=== PATIENT | male | born 1970 | race Caucasian/White ===

== ENCOUNTER → 2020-02-25 10:46 | Outpatient (CLI) | payer OTHER, SELFPAY ==
[2020-02-25 12:14] LABS: Anion Gap 15.7 mEq/L (5-15); Blood Urea Nitrogen 8 mg/dl (9-20); Carbon Dioxide 31 mmol/L (22.0-30.0); Chloride 101 mmol/L (98-107); Chol/HDL Ratio 2.7 (1-3.5); Cholesterol 161 mg/dl (140-200); Estimated Glomerular Filt Rate 143 ml/min (>60); GFR (African American) 173 ML/MIN (>60); Glucose 106 mg/dl (74-100); HDL Cholesterol 60 mg/dl (40-60); Potassium 4.7 mmoL/L (3.5-5.1); Sodium 143 mmol/L (136-145); Triglycerides 65 mg/dl (30-150); VLDL Cholesterol 13 mg/dL (0-40)
[2020-02-25 12:25] LABS: Direct LDL Cholesterol 86.27 mg/dL (100-129)
[2020-02-25 12:26] LABS: Creatinine,Urine Random 113 mg/dL (Not Estab.)
[2020-02-25 12:44] LABS: Thyroid Stimulating Hormone 2.13 uIU/mL (0.465-4.68)
[2020-02-25 12:45] LABS: Hemoglobin A1C 7.2 % (4.0-6.0)
[2020-02-25 12:51] LABS: Microalbumin < 6.000 mg/L (0-16.7)
== END ==
PROVIDERS: Visit Provider Internal Medicine Endocrinology, Diabetes & Metabolism
DX: E10.9 Type 1 diabetes mellitus without complications (principal)
CPT/HCPCS: 36415; 80048; 80061; 82043; 82570; 83036; 84443

== ENCOUNTER 2020-05-29 14:57 | Emergency (ER) | payer OTHER, SELFPAY ==
[2020-05-29 15:15] VITALS: BP 141/83; PULSE 74; RESP 20; TEMP 36.8; O2SAT 100; BMI 28.9
[2020-05-29 15:36] VITALS: BP 141/83; PULSE 74; RESP 20; TEMP 36.8; O2SAT 100
== END 2020-05-29 15:38 | disposition home or self-care (01) ==
PROVIDERS: Emergency Provider Nurse Practitioner; PCP Family Medicine
DX: Z23 Encounter for immunization (principal)
CPT/HCPCS: 90686; G0008

== ENCOUNTER → 2022-05-09 07:24 | Outpatient (CLI) | payer OTHER, SELFPAY ==
[2022-05-09 09:07] LABS: Chloride 101 mmol/L (98-107); Potassium 4.5 mmoL/L (3.5-5.1); Sodium 142 mmol/L (136-145)
[2022-05-09 09:09] LABS: Blood Urea Nitrogen 11 mg/dl (9-20); Estimated Glomerular Filt Rate 119 ml/min (>60); GFR (African American) 144 ML/MIN (>60)
[2022-05-09 09:10] LABS: Alanine Aminotransferase 33 U/L (12-78); Albumin Level 4.4 g/dl (3.5-5.0); Albumin/Globulin Ratio 1.6 (1.1-1.8); Alkaline Phosphatase 128 U/L (38-126); Anion Gap 12.5 mEq/L (5-15); Aspartate Amino Transferase 37 U/L (17-59); Bilirubin,Total 0.6 mg/dl (0.2-1.3); Calcium 9.2 mg/dl (8.4-10.2); Carbon Dioxide 33 mmol/L (22.0-30.0); Cholesterol 169 mg/dl (140-200); Globulin 2.8 g/dL (1.3-3.2); Glucose 111 mg/dl (74-100); Total Protein,Serum 7.2 g/dl (6.3-8.2); Triglycerides 52 mg/dl (30-150); VLDL Cholesterol 10 mg/dL (0-40)
[2022-05-09 09:11] LABS: Chol/HDL Ratio 3.2 (1-3.5); HDL Cholesterol 53 mg/dl (40-60)
[2022-05-09 09:21] LABS: Direct LDL Cholesterol 86.25 mg/dL (100-129)
[2022-05-09 09:40] LABS: Thyroid Stimulating Hormone 3.16 uIU/mL (0.465-4.68)
[2022-05-09 11:43] LABS: Microalbumin/Creatinine Ratio 9.8
[2022-05-09 11:48] LABS: Creatinine,Urine Random 73 mg/dL (Not Estab.)
== END ==
PROVIDERS: PCP Family Medicine; Visit Provider Physician Assistant Medical
DX: E10.319 Type 1 diabetes mellitus with unspecified diabetic retinopathy without macular edema (principal); E78.5 Hyperlipidemia, unspecified
CPT/HCPCS: 36415; 80053; 80061; 82043; 82570; 84443

== ENCOUNTER 2023-08-23 09:46 | Outpatient (CLI) | payer OTHER, SELFPAY ==
[2023-08-23 10:56] LABS: Alanine Aminotransferase 35 U/L (12-78); Albumin Level 4.5 g/dl (3.5-5.0); Albumin/Globulin Ratio 1.5 (1.1-1.8); Alkaline Phosphatase 122 U/L (38-126); Anion Gap 10.8 mEq/L (5-15); Aspartate Amino Transferase 32 U/L (17-59); Bilirubin,Total 0.8 mg/dl (0.2-1.3); Blood Urea Nitrogen 8 mg/dl (9-20); Calcium 9.7 mg/dl (8.4-10.2); Carbon Dioxide 32 mmol/L (22.0-30.0); Chloride 102 mmol/L (98-107); Chol/HDL Ratio 3.7 (1-3.5); Cholesterol 184 mg/dl (140-200); Estimated Glomerular Filt Rate 118 ml/min (>60); GFR (African American) 143 ML/MIN (>60); Glucose 136 mg/dl (74-100); HDL Cholesterol 50 mg/dl (40-60); Potassium 4.8 mmoL/L (3.5-5.1); Sodium 140 mmol/L (136-145); Total Protein,Serum 7.5 g/dl (6.3-8.2); Triglycerides 60 mg/dl (30-150); VLDL Cholesterol 12 mg/dL (0-40)
[2023-08-23 10:57] LABS: Creatinine,Urine Random 79 mg/dL (Not Estab.); Microalbumin < 6.000 mg/L (0-16.7)
[2023-08-23 11:07] LABS: Direct LDL Cholesterol 96.97 mg/dL (100-129)
[2023-08-23 11:15] LABS: Free T4 (Free Thyroxine) 0.75 ng/dl (0.78-2.19)
[2023-08-23 11:22] LABS: 25-OH Vitamin D, Total < 12.8 ng/mL (30-100)
[2023-08-23 11:26] LABS: Prostate Specific Ag Screen 1.9 ng/ml (0.0-4.0)
[2023-08-23 11:30] LABS: Thyroid Stimulating Hormone 2.32 uIU/mL (0.465-4.68)
== END 2023-08-23 23:59 ==
LOC: LAB 09:47
PROVIDERS: Physician Assistant Medical; PCP Nurse Practitioner Family; Visit Provider Nurse Practitioner Family
DX: I10 Essential (primary) hypertension (principal); E55.9 Vitamin D deficiency, unspecified; E10.319 Type 1 diabetes mellitus with unspecified diabetic retinopathy without macular edema; Z68.27 Body mass index [BMI] 27.0-27.9, adult; Z79.4 Long term (current) use of insulin
CPT/HCPCS: 36415; 80053; 80061; 82043; 82306; 82570; 84439; 84443; G0103

== ENCOUNTER 2024-04-07 11:01 | Day surgery (SDC) | payer OTHER, SELFPAY ==
[2024-03-31 11:09] VITALS: BMI 29.4
[2024-04-07] VITALS (7 sets, daily range): BP systolic 116–152; BP diastolic 68–75; PULSE 80–111; RESP 18; TEMP 36.4–36.8; O2SAT 93–98
[2024-04-07] MEDS: LACTATED RINGERS 1000ML 1,000 ML 100 ML IV (11:30)
--- NOTE | 2024-04-07 11:35 | P.PNANES_ITS ---
[facility] Disclaimer: The information contained in this section may have been updated after the patient was seen, as this information can be updated by other users. Medical History History of gastroesophageal reflux (GERD) Diabetes mellitus type 1 History of cataract Hypertension Surgical History History of cholecystectomy History of tonsillectomy Family History Other Hypertension Stroke Social History Smoking Status: Never smoker alcohol intake: never substance use type: denies use current occupational status: employed Travel in the last 8 weeks: None household members: family housing: house marital status: education level: high school [employer] Anesthesia Checklist Patient Identification Patient Identification: Arm Band and Verbal (Name & ) Structural Data Admitted From: Home Planned Operative Procedure/s: EGD/Colonoscopy Consent for Planned Operative Procedure(s) Verified: Yes Verified Documents: Surgical Consent and History and Physical NPO Status Verified Time NPO: 00:00 Chart Verification Results Verified: CBC and BMP Additional verifications Anesthesia Reactions: No Airway Assessment Mallampati Score:: Class III C-Spine Mobility Assessed: Yes TMJ Mobility Assessed: Yes Dentition: Good Dentition Neurological Assessment Level of Consciousness: Awake Hx Seizures: No Numbness or tingling in extremities: No Anesthesia Plan Anesthesia Risk discussed: Yes Anesthesia Plan: Verified ASA Class: II Anesthesia Type: MAC
--- NOTE | 2024-04-07 12:29 | EXP.HP ---
History of Present Illness *Admission Date: 04/07/24 *Reason for visit:: Dysphagia and screening *History of present illness: Mr. Badillo is a 54-year-old gentleman who is here for swallowing difficulty to solids and screening colonoscopy. [facility] Disclaimer: The information contained in this section may have been updated after the patient was seen, as this information can be updated by other users. Medical History History of gastroesophageal reflux (GERD) Diabetes mellitus type 1 History of cataract Hypertension Surgical History History of cholecystectomy History of tonsillectomy Family History Other Hypertension Stroke Social History Smoking Status: Never smoker alcohol intake: never substance use type: denies use current occupational status: employed Travel in the last 8 weeks: None household members: family housing: house marital status: education level: high school Review of Systems Review of Systems Review of systems (narrative): Negative *Cardiovascular Comments: Negative *Gastrointestinal Comments: Negative *Genitourinary Comments: Negative *Musculoskeletal Comments: Negative *Neurologic Comments: Negative Meds Home Medications and Allergies Home Medications ?Medication ?Instructions ?Recorded ?Confirmed ?Type cyclosporine 0.05 % eye drops in a 1 drp ophthalmic (eye) Q12H 08/23/23 04/07/24 History dropperette insulin lispro 100 unit/mL 1 sliding scale dose SQ 08/23/23 04/07/24 History subcutaneous solution (Humalog USEASDIRECTD U-100 Insulin) lisinopril 10 mg tablet 10 mg PO DAILY 08/23/23 04/07/24 History atorvastatin 40 mg tablet 40 mg PO DAILY 11/20/23 04/07/24 History [id number] 140 gram-sod sulfate 9 See Rx Instructions PO .COMPLEX #3 03/25/24 Rx gram-NaCl 5.2gram-KCl-C oral pwdr ea packs (Plenvu) New Prescriptions to Start Prescriptions: Allergies Allergy/AdvReac Type Severity Reaction Status Date / Time No Known Allergies Allergy Verified 04/07/24 11:15 Exam Data for Last 24 hours Vital signs and Labs for Last 24 Hours: Temp Pulse Resp BP Pulse Ox O2 Del Method 98.2 F 111 H 18 152/72 H 98 Room Air 04/07/24 11:18 04/07/24 11:18 04/07/24 11:18 04/07/24 11:18 04/07/24 11:18 04/07/24 11:18 *Routine HEENT Exam Head: Present normocephalic Eye: Present EOMI and PERRL ENT: Present mucous membranes moist *Routine Neck Exam Neck: Present supple *Routine Respiratory Exam Respiratory: Present CTA bilaterally *Routine Cardiovascular Exam Cardiovascular: Present RRR *Routine Abdominal Exam Abdominal: Present soft and normoactive bowel sounds; Absent tenderness *Routine Rectal Exam Rectal:: deferred *Routine Genitalia Exam Genitalia:: deferred *Routine Extremities Exam Extremities: Absent cyanosis, clubbing or edema *Routine Skin Exam Skin: Present warm; Absent rash *Routine Neurological Exam Neurological: Present alert and oriented X3 Assessment and Plan *Assessment and plan (1) Dysphagia: Status: Acute Category: Medical Code(s): R13.10 - Dysphagia, unspecified (2) Colon cancer screening: Status: Acute Category: Medical Code(s): Z12.11 - Encounter for screening for malignant neoplasm of colon Plan Proceed with EGD/colonoscopy
--- NOTE | 2024-04-07 12:42 | P.PCN_ITS ---
[facility] Procedure Note Date: 04/07/24 Time: 12:42 Procedure Note:: Upper Endoscopy Procedure Report: Esophagogastroduodenoscopy with cold biopsies and TTS balloon dilation Endoscopost: Marcin Alonso II, MD Referring Physician: PENELOPE Jorgensen Date of Procedure: April 07, 2024 Equipment: Olympus GIF 190 standard upper endoscope Sedation: MAC sedation Indications: Mr. Badillo is a 54-year-old gentleman who is here for diagnostic/therapeutic upper endoscopy secondary to dysphagia to solid foods such as breads, meats and large tablets. He will sometimes get coughing or choking with meals. He does get some supine heartburn and reflux. He takes [id number] Mylanta. He reports no abdominal pain or weight loss. This is his first upper endoscopy. Procedure: Prior to the procedure, a history and physical exam was performed, and patient's medications and allergies were reviewed. The risks, benefits and alternatives of the sedation and procedure were discussed with the patient. All questions were answered and informed consent was obtained. The patient was brought to the procedure room. Patient identification and proposed procedure were verified by the physician and the nurse. The patient was placed in a left lateral decubitus position and the scope was passed under direct vision. Throughout the procedure, the patient's blood pressure, pulse, and oxygen saturations were monitored continuously. The upper GI endoscopy was accomplished without difficulty. The patient tolerated the procedure well. Findings: The scope was passed directly into the upper esophagus and advanced to the third portion of the duodenum. The post bulbar duodenum and duodenal bulb were normal with normal mucosa and conniventes. The scope was withdrawn through a normal duodenal bulb and pylorus into the stomach. There was evidence of moderate linear reactive gastropathy of the antrum and body of the stomach. Biopsies were taken from the antrum and body of the stomach. The remainder of the fundus was normal. Upon retroflexion there was no hiatal hernia. The scope was then withdrawn into the esophagus. There was distal esophageal ring. There was also evidence of corrugation, linear striations and furrowing within the distal and mid esophagus suggestive of eosinophilic esophagitis. Cold biopsies were taken from the distal and proximal esophagus separately to rule out eosinophilic esophagitis. There was no evidence of reflux esophagitis or Concepcion's. Next, the esophagus was dilated to 60 Khmer/20 mm with a TTS hydrostatic balloon with shattering of the distal ring. The distal ring was approximately 12 to 13 mm in diameter initially. The proximal esophagus at the GE junction was dilated to 18 mm. Impression: 1. Corrugation, furrowing and striation of mid/distal esophagus suggestive of eosinophilic esophagitis status post biopsies and dilation to 20 mm 2. Moderate linear reactive gastropathy of antrum/body Plan: I will follow-up the biopsies. I will initially begin treatment with PPI/omeprazole and recommend RAST food allergy testing. I will proceed with screening colonoscopy.
--- NOTE | 2024-04-07 12:59 | P.PCN_ITS ---
[facility] Procedure Note Date: 04/07/24 Time: 12:59 Procedure Note:: Aborted colonoscopy procedure Report: Sigmoidoscopy Endoscopist: Marcin Alonso II, MD Referring physician: PENELOPE Jorgensen Date of Procedure: April 07, 2024 Equipment: Olympus 190 variable stiffness pediatric colonoscope Sedation: MAC sedation Indication: Mr. Badillo is a 54-year-old gentleman who is here for initial screening colonoscopy. He reports no abdominal pain, weight loss, change in his bowel habits or rectal bleeding. He reports no family history of colon cancer. Procedure: Prior to the procedure, a history and physical exam was performed, and patient's medications and allergies were reviewed. The risks, benefits and alternatives of the sedation and procedure were discussed with the patient. All questions were answered and informed consent was obtained. The patient was brought to the procedure room. Patient identification and proposed procedure were verified by the physician and the nurse. The patient was placed in a left lateral decubitus position and the scope was passed under direct vision. Throughout the procedure, the patient's blood pressure, pulse, and oxygen saturations were monitored continuously. The colonoscopy was accomplished without difficulty. The patient tolerated the procedure well. Findings: On digital rectal examination there was normal rectal tone there were no external hemorrhoids the scope was then inserted through the anal canal to the rectum and advanced to 30 cm. There was abundant amount of brown liquid stool more proximal to this impairing visualization of the colonic mucosa. The preparation was poor and thus the procedure was aborted because of visibility. Impression: 1. Unprepped colonoscopy Plan: We will schedule repeat screening colonoscopy with improved preparation.
[2024-04-08 09:33] LABS: POC Glucose,Bedside 96 (70-110)
[2024-04-11 19:09] LABS: F001-IgE Egg White <0.10 kU/L (Class 0); F002-IgE Milk 1.91 kU/L (Class III); F003-IgE Codfish 0.19 kU/L (Class 0/I); F004-IgE Wheat <0.10 kU/L (Class 0); F010-IgE Sesame Seed <0.10 kU/L (Class 0); F013-IgE Peanut <0.10 kU/L (Class 0); F014-IgE Soybean <0.10 kU/L (Class 0); F024-IgE Shrimp <0.10 kU/L (Class 0); F256-IgE Walnut <0.10 kU/L (Class 0); F338-IgE Scallop <0.10 kU/L (Class 0)
== END 2024-04-07 14:36 | disposition home or self-care (01) ==
PROVIDERS: PCP Nurse Practitioner Family; Visit Provider Internal Medicine Gastroenterology
PROC: 0DJ08ZZ Inspection of Upper Intestinal Tract, Via Natural or Artificial Opening Endoscopic (ICD-10-PCS; CPT 43235; principal; 2024-04-07 12:30)
DX: Z12.11 Encounter for screening for malignant neoplasm of colon (principal); R13.10 Dysphagia, unspecified; K20.0 Eosinophilic esophagitis; K31.89 Other diseases of stomach and duodenum; Z53.09 Procedure and treatment not carried out because of other contraindication
CPT/HCPCS: 43239; 43249; 45378; 82962; 86003; 86008; 99221; C1726; J7120

== ENCOUNTER 2025-02-19 09:01 | Outpatient (CLI) | payer OTHER, SELFPAY ==
[2025-02-19 15:04] LABS: Hematocrit 47.5 % (42.0-52.0); Hemoglobin 15.6 g/dL (14.1-18.0); Immature Granulocytes % 0.7 %; Mean Corpuscular HGB Conc 32.8 g/dL (31.8-35.4); Mean Corpuscular Hemoglobin 30.4 pg (27.0-31.2); Mean Corpuscular Volume 92.6 fl (80-94); Nucleated Red Blood Cells % 0 %; Platelet Count 293 K/mm3 (142-424); Red Blood Count 5.13 M/mm3 (4.60-6.20); Red Cell Distribution Width-SD 41.1 fL; White Blood Count 5.6 K/mm3 (4.8-10.8)
[2025-02-19 15:47] LABS: Alanine Aminotransferase 34 U/L (12-78); Albumin Level 4.5 g/dl (3.5-5.0); Albumin/Globulin Ratio 1.6 (1.1-1.8); Alkaline Phosphatase 150 U/L (38-126); Anion Gap 9.5 mEq/L (5-15); Aspartate Amino Transferase 33 U/L (17-59); Bilirubin,Total 0.6 mg/dl (0.2-1.3); Blood Urea Nitrogen 7 mg/dl (9-20); Calcium 10.0 mg/dl (8.4-10.2); Carbon Dioxide 32 mmol/L (22.0-30.0); Chloride 103 mmol/L (98-107); Cholesterol 155 mg/dl (140-200); Creatinine,Serum 0.60 mg/dl (0.66-1.25); Estimated Glomerular Filt Rate 140 ml/min (>60); GFR (African American) 170 ML/MIN (>60); Globulin 2.9 g/dL (1.3-3.2); Glucose 134 mg/dl (74-100); HDL Cholesterol 54 mg/dl (40-60); Potassium 4.5 mmoL/L (3.5-5.1); Sodium 140 mmol/L (136-145); Total Protein,Serum 7.4 g/dl (6.3-8.2); Triglycerides 50 mg/dl (30-150)
[2025-02-19 18:55] LABS: Hemoglobin A1C 7.0 % (4.0-6.0)
--- OUTSIDE RECORDS SUMMARY | 2025-02-20 10:55 | XMS_ITS | Encounter Summary ---
Author Organization [facility] Address [address] [place] [address] Care Team Providers Care Molecular Technologist Name Role Phone Steve Blum APRN Primary Care Provider [phone] Reason for Visit * Reason Comments Med Refill Encounter Details Date Type Department Care Team (Late st Contact Info) Description 01/18/2025 Refill [facility] [address] [place] [address] Lia Hernandez PA [address] [place] [address] Type 1 diabetes mellitus with retinopathy, macular edema presence unspecified, unspecified laterality, unspecified retinopathy severity (CMS/HCC) Social History Tobacco Use Types Packs/Day Years Used Date Smoking Tobacco: Never Smokeless Tobacco: Never Alcohol Use Standard Drinks/Week Comments Never 0 (1 standard drink = 0.6 oz pur e alcohol) Alcoholic Drinks/day: Alcohol PHQ-2 Answer Date Recorded Patient Health Questionnaire-2 Score 0 10/28/2024 Sex and Gender Information Value Date Recorded Sex Assigned at Not on file Legal Sex Male 8:23 PM EDT Gender Identity Not on file Sexual Orientation Not on file documented as of this encounter Miscellaneous Notes * Telephone Encounter - Ilene Rubi - 2025 2:00 PM EDT 1 medication(s) has been approved per protocol. documented in this encounter Plan of Treatment Upcoming Encounters Date Type Department Care Team (Late st Contact Info) Description 04/29/2025 9:00 AM EDT [facility] [address] [place] [id number] Lia Hernandez PA [address] [place] [address] documented as of this encounter Visit Diagnoses Diagnosis Type 1 diabetes mellitus with retinopathy, macular edema presence unspecified, unspecified laterality, unspecified retinopathy severity (CMS/HCC) documented in this encounter Additional Health Concerns Assessment Noted Time A fall risk assessment has been complete d for the patient 10/26/2022 1:15 PM EDT A Body Mass Index follow-up plan has been documented for the patient 10/28/2024 9:48 AM EDT documented as of this encounter Care Teams Molecular Technologist Relationship Specialty Start Date End Date Steve Blum APRN [address] [place] [address] PCP - General 10/28/24 documented as of this encounter
--- OUTSIDE RECORDS SUMMARY | 2025-02-20 10:57 | XMS_ITS | Encounter Summary ---
Author Organization [facility] Address [address] [place] [address] Care Team Providers Care Carton Packaging Machine Operator Name Role Phone Salvador Epps MD Primary Care Provider [phone] Steve Blum APRN Primary Care Provider [phone] Reason for Visit * Reason Comments Med Refill Encounter Details Date Type Department Care Team (Late st Contact Info) Description 05/28/2023 Refill [facility] [address] [place] [address] Lia Hernandez PA [address] [place] [address] Type 1 diabetes mellitus with retinopathy, macular edema presence unspecified, unspecified laterality, unspecified retinopathy severity (CMS/HCC) Social History Tobacco Use Types Packs/Day Years Used Date Smoking Tobacco: Never Smokeless Tobacco: Never Alcohol Use Standard Drinks/Week Comments Never 0 (1 standard drink = 0.6 oz pur e alcohol) Alcoholic Drinks/day: Alcohol Sex and Gender Information Value Date Recorded Sex Assigned at Not on file Legal Sex Male 8:23 PM EDT Gender Identity Not on file Sexual Orientation Not on file documented as of this encounter Plan of Treatment Upcoming Encounters Date Type Department Care Team (Late st Contact Info) Description 04/29/2025 9:00 AM EDT [facility] [address] [place] [address] Lia Hernandez PA [address] [facility] [address] [place] [address] documented as of this encounter Visit Diagnoses Diagnosis Type 1 diabetes mellitus with retinopathy, macular edema presence unspecified, unspecified laterality, unspecified retinopathy severity (CMS/HCC) documented in this encounter Additional Health Concerns Assessment Noted Time A fall risk assessment has been complete d for the patient 10/26/2022 1:15 PM EDT A Body Mass Index follow-up plan has been documented for the patient 01/30/2023 10:26 AM EDT documented as of this encounter Care Teams Carton Packaging Machine Operator Relationship Specialty Start Date End Date Salvador Epps MD [address] [place] [address] PCP - General 11/26/20 10/27/24 Steve Blum APRN [address] [place] [address] PCP - General 10/28/24 documented as of this encounter
--- OUTSIDE RECORDS SUMMARY | 2025-02-20 10:57 | XMS_ITS | Clinical Summary ---
Author Organization [facility] Address [address] [place] [address] Care Team Providers Care Watch Train Assembler Name Role Phone Viktoria Steve Billy APRN Primary Care Provider [phone] Allergies Active Allergy Reactions Criticality Noted Date Comments Ciprofloxacin Other - please docum ent in the comment field Low 03/27/2013 crazy thoughts, head woo Medications Lumigan 0.01 % ophthalmic solution INSTILL 1 DROP IN BOTH EYES EVERY EVENING 1 Active esomeprazole (NexIUM) [address] capsule TAKE 1 CAPSULE ONCE DAILY 30 minutes before eating. 0 Active glucagon 1 MG injection USE DIRECTED. 9 Active Restasis 0.05 % ophthalmic emulsion INSTILL 1 DROP INTO EACH EYE EVERY 12 HOURS 2 Active Lancets Ultra Fine miscIndications:Ty pe 1 diabetes mellitus with retinopathy, macular edema presence unspecified, unspecified laterality, unspecified retinopathy severity ([facility]/HCC) Use to test blood glucose 5 times a day 300 each 3 2 Active pen needle, diabetic (B-D UF III MINI PEN NEEDLES) 31G X 5 MM miscIndications:Ty pe 1 diabetes mellitus with retinopathy, macular edema presence unspecified, unspecified laterality, unspecified retinopathy severity (CMS/HCC) For use to administer insulin via pens 100 each 3 3 Active insulin glargine (Lantus SoloStar, Basaglar) 100 UNIT/ML injection penIndications:Typ e 1 diabetes mellitus with retinopathy, macular edema presence unspecified, unspecified laterality, unspecified retinopathy severity (CMS/HCC) Use up to 50 units per day on days when insulin pump is not in use 15 mL 3 4 Active atorvastatin (Lipitor) 40 MG tabletIndications: Hyperlipidemia, unspecified hyperlipidemia type Take one tablet at bedtime each day 90 tablet 3 4 Active lisinopril 10 MG tabletIndications: Type 1 diabetes mellitus with retinopathy, macular edema presence unspecified, unspecified laterality, unspecified retinopathy severity (CMS/HCC),Hyperten garland, unspecified type TAKE 1 TABLET BY MOUTH IN THE MORNING 90 tablet 3 4 Active Insulin Lispro (Admelog, HumaLOG) 100 UNIT/ML injection vialIndications:Ty pe 1 diabetes mellitus with retinopathy, macular edema presence unspecified, unspecified laterality, unspecified retinopathy severity (CMS/HCC) USE IN INSULIN PUMP FOR UP TO 100 UNITS TDD 90 mL 1 5 Active acetone, urine, test stripIndications:T ype 1 diabetes mellitus with retinopathy, macular edema presence unspecified, unspecified laterality, unspecified retinopathy severity (CMS/HCC) 1 strip as needed for high blood sugar. 50 each 3 5 026 Active glucose blood (OneTouch Ultra) test stripIndications:T ype 1 diabetes mellitus with retinopathy, macular edema presence unspecified, unspecified laterality, unspecified retinopathy severity (CMS/HCC) USE 1 STRIP TO CHECK GLUCOSE THREE TIMES DAILY 100 each 3 5 Active Active Problems Problem Noted Date Diagnosed Date Insulin pump in place 04/24/2022 Type 1 diabetes mellitus with retinopathy 2020 Retinopathy 05/19/2021 Hypertension 05/19/2021 Hyperlipidemia 05/19/2021 Encounters Date Type Department Care Team Description 01/18/2025 Refill [facility] [address] [place] [address] Lia Hernandez PA Type 1 diabetes mellitus with retinopathy, macular edema presence unspecified, unspecified laterality, unspecified retinopathy severity (CMS/HCC) from Last 3 Months Family History Medical History Relation Name Comments Hypertension Mother Diabetes type I Mother's Sister Diabetes type II Other Relation Name Status Comments Mother Mother's Sister Other Social History Tobacco Use Types Packs/Day Years Used Date Smoking Tobacco: Never Smokeless Tobacco: Never Tobacco Cessation:Counseling Given: Not Answered Alcohol Use Standard Drinks/Week Comments Never 0 (1 standard drink = 0.6 oz pur e alcohol) Alcoholic Drinks/day: Alcohol PHQ-2 Answer Date Recorded Patient Health Questionnaire-2 Score 0 10/28/2024 Sex and Gender Information Value Date Recorded Sex Assigned at Not on file Legal Sex Male 8:23 PM EDT Gender Identity Not on file Sexual Orientation Not on file Last Filed Vital Signs Vital Sign [place] Time Taken Comments Blood Pressure 132/77 10/28/2024 8:53 AM EDT Pulse 93 10/28/2024 8:53 AM EDT Temperature 37.1 C (98.8 F) 10/27/2020 10:04 AM EDT Respiratory Rate - - Oxygen Saturation - - Inhaled Oxygen Concentration - - Weight 78.9 kg (173 lb 15.1 oz) 10/28/2024 8:53 AM EDT Height 165.1 cm (5' 5 ) 10/28/2024 8:53 AM EDT Body Mass Index 28.95 10/28/2024 8:53 AM EDT Plan of Treatment Upcoming Encounters Date Type Department Care Team (Late st Contact Info) Description 04/29/2025 9:00 AM EDT Office Visit [facility] [address] [place] [address] Lia Hernandez, PA [address] [place] [address] Health Maintenance Due Date Last Done Comments [facility]-HIV Screening 1971 [facility]-Hepatitis C Screening 1971 [facility]-Infant/Child/Adol SDOH Screenings 1971 Diabetes: Dental Exam 1981 [facility]- SDOH Screenings 1989 [facility]-Adult SDOH Screenings 1989 [facility]-DTaP,Tdap,and Td Vaccines (1 - Tdap) 1990 [facility]-Hepatitis B Vaccines (1 of 3 - 19+ 3-dose series) 1990 [facility]-Pneumococcal Vaccine: 50+ Years (1 of 2 - PCV) 1990 CT Colonography 01/20/2016 Colonoscopy 01/20/2016 FIT-DNA 01/20/2016 FIT 01/20/2016 FOBT 01/20/2016 Sigmoidoscopy 01/20/2016 [facility]-Colorectal Cancer Screening 01/20/2016 [facility]-Zoster Vaccines (1 of 2) 2021 [id number] Vaccine (3 - season) 2024 08/27/2021, 07/17/2021 [facility]-Influenza Vaccine (#1) 03/16/202505/27, 05/14/2021, 05/29/2020 [facility]-Diabetes: Hemoglobin A1C 04/27/2025, 06/25/2024, 03/25/2024, Additional history exists [facility]-Depression Screening 10/28/2025 10/28/2024 [facility]-Hepatitis A Vaccines Aged Out 07/12/2018 No longer eligible based on patient's age to complete this topic [facility]-Obesity Intervention Completed 025, 06/25/2024, 03/25/2024, Additional history exists HPV Vaccines Aged Out No longer eligi ble based on patient's age to complete this topic [facility]-HIB Vaccines Aged Out No longer e ligible based on patient's age to complete this topic [facility]-IPV Vaccines Aged Out No longer e ligible based on patient's age to complete this topic [facility]-Rotavirus Vaccines Aged Out No lo nger eligible based on patient's age to complete this topic Procedures Procedure Name Priority Date/Time Associated Diagnosis Comments POCT GLYCOSYLATED HEMOGLOBIN (HGB A1C) Routine 10/28/2024 9:06 AM EDT Type 1 diabetes mellitus with retinopathy, macular edema presence unspecified, unspecified laterality, unspecified retinopathy severity (CMS/HCC) from Last 3 Months or Most Recently Relevant to Health Maintenance Results * (ABNORMAL) POCT glycosylated hemoglobin (Hb A1C) (10/28/2024 9:06 AM EDT) POCT Hemoglobin A1C 6.7 <5.7% Non-Diabet ic % [facility] Kit Lot Number [id number] [facility] Kit Expiration Date 09/11 [employer] [facility] Blood Venous blood specimen / Unknown 10/28/2024 9:06 AM EDT Lia SERRATO POINT OF CARE TEST EN TER/EDIT ORDERABLES Final Result [facility] [address] [place] [address] from Last 3 Months or Most Recently Relevant to Health Maintenance Insurance Care Teams Watch Train Assembler Relationship Specialty Start Date End Date Steve Blum APRN [address] [place] [address] PCP - General 10/28/24
== END 2025-02-19 23:59 | disposition home or self-care (01) ==
LOC: LAB.DROPOF 02-20 10:54
PROVIDERS: PCP Family Medicine; Visit Provider Family Medicine
DX: N40.0 Benign prostatic hyperplasia without lower urinary tract symptoms (principal); E78.5 Hyperlipidemia, unspecified; E11.9 Type 2 diabetes mellitus without complications; I10 Essential (primary) hypertension
CPT/HCPCS: 80053; 80061; 83036; 85025; G0103

== ENCOUNTER 2025-03-18 22:09 | Observation (INO) | payer OTHER, SELFPAY ==
[2025-03-18 22:10] VITALS: BP 162/85; PULSE 106; RESP 14; TEMP 37.2; O2SAT 100; BMI 28.3
--- NOTE | 2025-03-18 22:21 | HMH.EDGENADL ---
Discharge Plan Disposition Patient Disposition: Admitted Condition: Good Clinical Impressions Clinical Impression: Angioedema Discharge ED Provider: Randy More General Adult HPI <Randy More MD - Last Filed: 03/19/25 00:51> General Chief complaint: Allergic Reaction Stated complaint: allergic reaction Time Seen by Provider: 03/18/25 22:14 History of Present Illness HPI narrative: Stu Badillo is a 55y is a 55-year-old male with a past medical history of hypertension on lisinopril, diabetes who presents to the emergency department for complaint of swelling to his face. Patient states that approximately 1 hour ago, he noticed swelling inside of his mouth and tongue as well as lips. He states that this is never happened before. He denies any new foods. He states that he took an allergy medication prior to arrival but does not know what it is. He reports that he is breathing okay. He does report that his voice appears muffled. Related Data Home Medications ?Medication ?Instructions ?Recorded ?Confirmed cyclosporine 0.05 % eye drops in a 1 drp ophthalmic (eye) Q12H 08/23/23 02/19/25 dropperette insulin lispro 100 unit/mL 1 sliding scale dose SQ 08/23/23 02/19/25 subcutaneous solution (Humalog USEASDIRECTD U-100 Insulin) lisinopril 10 mg tablet 10 mg PO DAILY 08/23/23 02/19/25 atorvastatin 40 mg tablet 40 mg PO DAILY 11/20/23 02/19/25 Previous Rx's ?Medication ?Instructions ?Recorded omeprazole 40 mg capsule,delayed 40 mg PO DAILY #30 caps 04/07/24 release cyclobenzaprine 5 mg tablet 5 mg PO BID PRN muscle spasm #30 02/20/25 tabs Allergies Allergy/AdvReac Type Severity Reaction Status Date / Time No Known Allergies Allergy Verified 02/19/25 08:30 PFS <Randy More MD - Last Filed: 03/19/25 00:51> [facility]LY [facility] Disclaimer: The information contained in this section may have been updated after the patient was seen, as this information can be updated by other users. Medical History History of gastroesophageal reflux (GERD) Diabetes mellitus type 1 History of cataract Hypertension Surgical History History of cholecystectomy History of tonsillectomy Family History Other Hypertension Stroke Social History Smoking Status: Never smoker alcohol intake: never substance use type: denies use current occupational status: employed Travel in the last 8 weeks?: None household members: family housing: house marital status: education level: high school Have you lived/traveled outside US in past 30 days?: No Contact w/someone who lives/traveled outside US past 30 days?: No Exposure to someone with infectious disease in past 14 days?: No Do you have a fever (greater than 100.4 F or 38 C)?: No Have you tested positive for COVID-19?: No Exposed to someone with COVID-19 in past 14 days?: No Do you have a sore throat?: No Do you have a cough?: No Do you have any weakness?: No Do you have any diarrhea?: No Are you experiencing any unusual bleeding?: No Do you have any muscle aches/pain?: No Do you have any abdominal pain?: No Are you experiencing loss of taste or smell?: No Other Medical History Have you received the Flu Vaccine for this season: No Have you received the Pneumonia Vaccine: No <Randy More MD - Last Filed: 03/19/25 00:51> ROS Obtained: Yes Systems reviewed as appropriate & no additional complaints except as documented Physical Exam <Randy More MD - Last Filed: 03/19/25 00:51> General General appearance: alert, in no apparent distress and anxious Head Head exam: atraumatic Eye Eye exam: Present normal appearance ENT ENT exam: Present normal external ear exam and other (Swelling to both lips, tongue and posterior oropharynx. Patient's voice appears mildly muffled. He is maintaining his airway and speaking in full sentences at this time. Sublingual edema present.) Neck Neck exam: Present full ROM Chest Chest inspection: Present symmetric chest wall rise Respiratory Respiratory exam: Present normal lung sounds bilaterally; Absent respiratory distress, wheezes or stridor Cardiovascular Cardiovascular exam: Present regular rate and normal rhythm Abdominal Exam Abdominal exam: Present soft; Absent tenderness or guarding exam: Present deferred Extremities Exam Extremities exam: Present normal inspection Back Exam Back exam: Present normal inspection Neurological Exam Neurological exam: Present alert and oriented X3 Psychiatric Psychiatric exam: Present normal affect Skin Skin exam: Present warm and dry Medical Decision Making <Randy More MD - Last Filed: 03/19/25 00:51> Medical Records Screening: Per USPSTF and CDC recommendations, given the prevalence of disease in our region, it is our hospital?s policy to screen for HIV and viral Hepatitis for all patients aged 18 and over and those with ongoing risk factors. [place] Inquiry Pt receiving controlled substance: No Vital Signs: 03/18/25 22:10 03/18/25 22:29 03/18/25 23:00 Temperature 98.9 F Temperature Source Oral Pulse Rate 120 H 99 H Pulse Rate [Radial] 106 H Respiratory Rate 14 18 17 TAR Vitals Timing Blood Pressure 155/81 H 140/72 Blood Pressure [Right Arm] 162/85 H Blood Pressure Mean Blood Pressure Mean [Right Arm] 110 Blood Pressure Source Blood Pressure Position Sitting Blood Pressure Position [Right Arm] Sitting 02 Sat by Pulse Oximetry 100 96 95 Oxygen Delivery Method Room Air Room Air 03/18/25 23:30 03/19/25 00:00 03/19/25 00:30 Temperature Temperature Source Pulse Rate 106 H 103 H Pulse Rate [Radial] Respiratory Rate 17 14 TAR Vitals Timing Blood Pressure 134/71 144/76 H 123/67 Blood Pressure [Right Arm] Blood Pressure Mean 92 Blood Pressure Mean [Right Arm] Blood Pressure Source Blood Pressure Position Blood Pressure Position [Right Arm] 02 Sat by Pulse Oximetry 94 L 94 L Oxygen Delivery Method 03/19/25 01:00 03/19/25 01:30 03/19/25 03:58 Temperature 98.0 F Temperature Source Oral Pulse Rate 112 H 114 H 107 H Pulse Rate [Radial] Respiratory Rate 17 18 18 TAR Vitals Timing Pre-Blood Vitals Blood Pressure 132/77 132/78 158/92 H Blood Pressure [Right Arm] Blood Pressure Mean 114 Blood Pressure Mean [Right Arm] Blood Pressure Source Automatic Cuff Blood Pressure Position Sitting Blood Pressure Position [Right Arm] 02 Sat by Pulse Oximetry 94 L 97 94 L Oxygen Delivery Method 03/19/25 04:00 Temperature 98.0 F Temperature Source Oral Pulse Rate 113 H Pulse Rate [Radial] Respiratory Rate 22 TAR Vitals Timing Start Vitals Blood Pressure 157/92 H Blood Pressure [Right Arm] Blood Pressure Mean 113 Blood Pressure Mean [Right Arm] Blood Pressure Source Automatic Cuff Blood Pressure Position Supine Blood Pressure Position [Right Arm] 02 Sat by Pulse Oximetry 95 Oxygen Delivery Method Lab Data Lab Results 03/18/25 22:23: WBC 8.6, RBC 5.19, Hgb 15.9, Hct 47.0, MCV 90.6, MCH 30.6, MCHC 33.8, RDW 12.0, Plt Count 245, MPV 9.8, Neut % (Auto) 58.3, Lymph % (Auto) 31.4, Yancey % (Auto) 7.3, Eos % (Auto) 1.6, Baso % (Auto) 0.6, Neut # (Auto) 5.0, Lymph # (Auto) 2.7, Yancey # (Auto) 0.6, Eos # (Auto) 0.1, Baso # (Auto) 0.1, PT 10.7, INR 0.96, APTT 23.4, Sodium 139, Potassium 3.9, Chloride 103, Carbon Dioxide 30, Anion Gap 9.9, BUN 10, Creatinine 0.90, Estimated Creat Clear 102, Estimated GFR 88, Est GFR ( Amer) 106, Glucose 138 H, Calcium 9.5, Total Bilirubin 0.9, AST 43, ALT 38, Alkaline Phosphatase 93, Total Protein 7.9, Albumin 4.6, Globulin 3.3 H, Albumin/Globulin Ratio 1.4, HCV Ab GIULIANA w/Rflx PCR Qn Negative, HIV Ag/Ab Combo Qual Negative 03/18/25 22:39: Blood Type Confirm O Positive 03/19/25 02:19: Blood Type O Positive 03/18/25 22:23 03/18/25 22:23 Orders (Tests/Meds): ED MEDICATIONS Generic Name Dose Route Start Last Admin Trade Name Freq PRN Reason Stop Dose Admin Acetaminophen 650 mg 03/19/25 03:46 Acetaminophen 325mg Tab PO 04/18/25 03:45 Q4HP PRN Fever or Mild Pain (1-3) Hydrocodone Bitart/Acetaminophen 1 tab 03/19/25 03:46 Hydrocodone/Apap 5/325 Mg Tablet PO 04/18/25 03:45 Q4HP PRN Mild to Moderate Pain (1-6) Al Hydrox/Mg Hydrox/Simethicone 30 ml 03/19/25 03:46 Aluminum/Magnesium/Simethicone 30ml Udc PO 04/18/25 03:45 QIDP PRN Dyspepsia Diphenhydramine HCl 25 mg 03/19/25 04:00 Diphenhydramine 50mg/Ml Vial IV 04/18/25 03:59 Q4HP RAMANA Enoxaparin Sodium 40 mg 03/19/25 09:00 Enoxaparin 40mg/0.4ml Syringe SUBCUT 04/18/25 08:59 DAILY RAMANA Famotidine 20 mg 03/19/25 09:00 Famotidine 20mg/2ml Vial IV 04/18/25 08:59 BID RAMANA Sodium Chloride 250 mls @ 25 mls/hr 03/19/25 01:45 Sod Chlor 0.9% 250ml Bag IV 03/20/25 01:44 .[facility]10H [facility] Sodium Chloride 1,000 mls @ 100 mls/hr 03/19/25 04:00 Sod Chlor 0.9% 1000ml Bag IV 04/18/25 03:59 .Q10H [facility] Insulin Human Lispro 0 unit 03/19/25 06:00 Humalog 100 Units/Ml 10ml Vial (Ssi) SUBCUT 04/18/25 05:59 ACHS RAMANA Protocol Methylprednisolone Sodium Succinate 40 mg 03/19/25 04:00 Methylprednisolone Sod Succ 40mg Vial IV 04/18/25 03:59 Q8H RAMANA Ondansetron HCl 4 mg 03/19/25 03:46 Ondansetron 4mg/2ml Vial IV 04/18/25 03:45 Q8HP PRN Nausea Sodium Chloride 8 ml 03/19/25 03:46 Sodium Chloride 0.9% 10ml Vial IV 04/18/25 03:45 NEEDED PRN dilute pepcid Discontinued Medications Generic Name Dose Route Start Last Admin Trade Name Freq PRN Reason Stop Dose Admin Diphenhydramine HCl 50 mg 03/18/25 22:17 03/18/25 22:26 Diphenhydramine 50mg/Ml Vial IV 03/18/25 22:18 50 mg ONCE ONE Administration Epinephrine HCl 0.3 mg 03/18/25 22:17 03/18/25 22:23 Epinephrine 1 Mg/Ml Ampul IM 03/18/25 22:18 0.3 mg ONCE ONE Administration Methylprednisolone Sodium Succinate 125 mg 03/18/25 22:17 03/18/25 22:25 Methylprednisolone Sod Succ 125mg Vial IV 03/18/25 22:18 125 mg ONCE ONE Administration Tranexamic Acid 1,000 mg 03/18/25 22:17 03/18/25 22:26 Tranexamic Acid 1,000 Mg/10 Ml Vial IVP 03/18/25 22:18 1,000 mg ONCE ONE Administration ORDERS Category Date Time Status ABO/RH Type Stat BBK 03/19/25 02:19 Completed FFP [Fresh Frozen Plasma] Stat BBK 03/19/25 02:19 Completed Basic Metabolic Panel AMLAB Lab 03/19/25 06:00 Ordered CBC w/Auto Diff [Complete Blood Count Auto Diff] Stat Lab 03/18/25 22:23 Completed CMP [Comprehensive Metabolic Panel] Stat Lab 03/18/25 22:23 Completed Complete Blood Count Auto Diff AMLAB Lab 03/19/25 06:00 Ordered HIV Combo Stat Lab 03/18/25 22:23 Completed Hepatitis C Ab Qual. W/ RFX Stat Lab 03/18/25 22:23 Completed PT INR [Prothrombin Time INR] Stat Lab 03/18/25 22:23 Completed PTT [Activated Partial Thrombo Time] Stat Lab 03/18/25 22:23 Completed Medical Decision Narrative: Stu Badillo is a 55y is a 55-year-old male with a past medical history of hypertension on lisinopril, diabetes who presents to the emergency department for complaint of swelling to his face. Patient states that approximately 1 hour ago, he noticed swelling inside of his mouth and tongue as well as lips. He states that this is never happened before. He denies any new foods. He states that he took an allergy medication prior to arrival but does not know what it is. He reports that he is breathing okay. He does report that his voice appears muffled. Patient was quickly assessed and is felt that no acute airway interventions are indicated at this time given he is speaking in full sentences and maintaining his airway at this time. Will administer 0.3 mg of intramuscular epinephrine, 125 mg of IV Solu-Medrol, 50 mg of IV Benadryl. Will also administer 1 g of IV TXA over 10 minutes given this is likely angioedema from a bradykinin mediated source from his lisinopril and less likely to be an allergic reaction to something else given he has not had any new foods or medications recently or other new exposures. These medications were administered at 2017. Patient was maintained on continuous telemetry monitoring. Will also obtain basic set of labs, CBC, CMP, coagulation factors. Is felt that no CT imaging is indicated at this time. On reassessment, patient reported significant improvement in symptoms. Swelling appears to have gone down significantly to the tongue, sublingual area, posterior oropharynx and lips, however does not appear completely resolved. Patient's voice appears back to normal and he continues to speak in full sentences without respiratory distress. Will continue to monitor patient for any recurrence of symptoms for minimum of 3 hours. I did discuss with patient that he will need to discontinue taking the lisinopril as this is the likely source of his reaction today and he was in agreement that he is not going to take this medication any longer. I did encourage him to follow-up with his prescribing physician if he is discharged today to discuss further medication options. At this time, patient's care was handed off to the oncoming physician, Dr. Rodriguez for further management. <Zhou Rodriguez MD - Last Filed: 03/19/25 04:05> Vital Signs: 03/18/25 22:10 03/18/25 22:29 03/18/25 23:00 Temperature 98.9 F Temperature Source Oral Pulse Rate 120 H 99 H Pulse Rate [Radial] 106 H Respiratory Rate 14 18 17 TAR Vitals Timing Blood Pressure 155/81 H 140/72 Blood Pressure [Right Arm] 162/85 H Blood Pressure Mean Blood Pressure Mean [Right Arm] 110 Blood Pressure Source Blood Pressure Position Sitting Blood Pressure Position [Right Arm] Sitting 02 Sat by Pulse Oximetry 100 96 95 Oxygen Delivery Method Room Air Room Air 03/18/25 23:30 03/19/25 00:00 03/19/25 00:30 Temperature Temperature Source Pulse Rate 106 H 103 H Pulse Rate [Radial] Respiratory Rate 17 14 TAR Vitals Timing Blood Pressure 134/71 144/76 H 123/67 Blood Pressure [Right Arm] Blood Pressure Mean 92 Blood Pressure Mean [Right Arm] Blood Pressure Source Blood Pressure Position Blood Pressure Position [Right Arm] 02 Sat by Pulse Oximetry 94 L 94 L Oxygen Delivery Method 03/19/25 01:00 03/19/25 01:30 03/19/25 03:58 Temperature 98.0 F Temperature Source Oral Pulse Rate 112 H 114 H 107 H Pulse Rate [Radial] Respiratory Rate 17 18 18 TAR Vitals Timing Pre-Blood Vitals Blood Pressure 132/77 132/78 158/92 H Blood Pressure [Right Arm] Blood Pressure Mean 114 Blood Pressure Mean [Right Arm] Blood Pressure Source Automatic Cuff Blood Pressure Position Sitting Blood Pressure Position [Right Arm] 02 Sat by Pulse Oximetry 94 L 97 94 L Oxygen Delivery Method 03/19/25 04:00 Temperature 98.0 F Temperature Source Oral Pulse Rate 113 H Pulse Rate [Radial] Respiratory Rate 22 TAR Vitals Timing Start Vitals Blood Pressure 157/92 H Blood Pressure [Right Arm] Blood Pressure Mean 113 Blood Pressure Mean [Right Arm] Blood Pressure Source Automatic Cuff Blood Pressure Position Supine Blood Pressure Position [Right Arm] 02 Sat by Pulse Oximetry 95 Oxygen Delivery Method Lab Data Lab Results 03/18/25 22:23: WBC 8.6, RBC 5.19, Hgb 15.9, Hct 47.0, MCV 90.6, MCH 30.6, MCHC 33.8, RDW 12.0, Plt Count 245, MPV 9.8, Neut % (Auto) 58.3, Lymph % (Auto) 31.4, Yancey % (Auto) 7.3, Eos % (Auto) 1.6, Baso % (Auto) 0.6, Neut # (Auto) 5.0, Lymph # (Auto) 2.7, Yancey # (Auto) 0.6, Eos # (Auto) 0.1, Baso # (Auto) 0.1, PT 10.7, INR 0.96, APTT 23.4, Sodium 139, Potassium 3.9, Chloride 103, Carbon Dioxide 30, Anion Gap 9.9, BUN 10, Creatinine 0.90, Estimated Creat Clear 102, Estimated GFR 88, Est GFR ( Amer) 106, Glucose 138 H, Calcium 9.5, Total Bilirubin 0.9, AST 43, ALT 38, Alkaline Phosphatase 93, Total Protein 7.9, Albumin 4.6, Globulin 3.3 H, Albumin/Globulin Ratio 1.4, HCV Ab GIULIANA w/Rflx PCR Qn Negative, HIV Ag/Ab Combo Qual Negative 03/18/25 22:39: Blood Type Confirm O Positive 03/19/25 02:19: Blood Type O Positive Orders (Tests/Meds): ED MEDICATIONS Generic Name Dose Route Start Last Admin Trade Name Freq PRN Reason Stop Dose Admin Acetaminophen 650 mg 03/19/25 03:46 Acetaminophen 325mg Tab PO 04/18/25 03:45 Q4HP PRN Fever or Mild Pain (1-3) Hydrocodone Bitart/Acetaminophen 1 tab 03/19/25 03:46 Hydrocodone/Apap 5/325 Mg Tablet PO 04/18/25 03:45 Q4HP PRN Mild to Moderate Pain (1-6) Al Hydrox/Mg Hydrox/Simethicone 30 ml 03/19/25 03:46 Aluminum/Magnesium/Simethicone 30ml Udc PO 04/18/25 03:45 QIDP PRN Dyspepsia Diphenhydramine HCl 25 mg 03/19/25 04:00 Diphenhydramine 50mg/Ml Vial IV 04/18/25 03:59 Q4HP RAMANA Enoxaparin Sodium 40 mg 03/19/25 09:00 Enoxaparin 40mg/0.4ml Syringe SUBCUT 04/18/25 08:59 DAILY RAMANA Famotidine 20 mg 03/19/25 09:00 Famotidine 20mg/2ml Vial IV 04/18/25 08:59 BID RAMANA Sodium Chloride 250 mls @ 25 mls/hr 03/19/25 01:45 Sod Chlor 0.9% 250ml Bag IV 03/20/25 01:44 .Q10H RAMANA Sodium Chloride 1,000 mls @ 100 mls/hr 03/19/25 04:00 Sod Chlor 0.9% 1000ml Bag IV 04/18/25 03:59 .Q10H RAMANA Insulin Human Lispro 0 unit 03/19/25 06:00 Humalog 100 Units/Ml 10ml Vial (Ssi) SUBCUT 04/18/25 05:59 ACHS RAMANA Protocol Methylprednisolone Sodium Succinate 40 mg 03/19/25 04:00 Methylprednisolone Sod Succ 40mg Vial IV 04/18/25 03:59 Q8H RAMANA Ondansetron HCl 4 mg 03/19/25 03:46 Ondansetron 4mg/2ml Vial IV 04/18/25 03:45 Q8HP PRN Nausea Sodium Chloride 8 ml 03/19/25 03:46 Sodium Chloride 0.9% 10ml Vial IV 04/18/25 03:45 NEEDED PRN dilute pepcid Discontinued Medications Generic Name Dose Route Start Last Admin Trade Name Sheryl PRN Reason Stop Dose Admin Diphenhydramine HCl 50 mg 03/18/25 22:17 03/18/25 22:26 Diphenhydramine 50mg/Ml Vial IV 03/18/25 22:18 50 mg ONCE ONE Administration Epinephrine HCl 0.3 mg 03/18/25 22:17 03/18/25 22:23 Epinephrine 1 Mg/Ml Ampul IM 03/18/25 22:18 0.3 mg ONCE ONE Administration Methylprednisolone Sodium Succinate 125 mg 03/18/25 22:17 03/18/25 22:25 Methylprednisolone Sod Succ 125mg Vial IV 03/18/25 22:18 125 mg ONCE ONE Administration Tranexamic Acid 1,000 mg 03/18/25 22:17 03/18/25 22:26 Tranexamic Acid 1,000 Mg/10 Ml Vial IVP 03/18/25 22:18 1,000 mg ONCE ONE Administration ORDERS Category Date Time Status ABO/RH Type Stat [facility] 03/19/25 02:19 Completed FFP [Fresh Frozen Plasma] Stat BBK 03/19/25 02:19 Completed Basic Metabolic Panel AMLAB Lab 03/19/25 06:00 Ordered CBC w/Auto Diff [Complete Blood Count Auto Diff] Stat Lab 03/18/25 22:23 Completed CMP [Comprehensive Metabolic Panel] Stat Lab 03/18/25 22:23 Completed Complete Blood Count Auto Diff AMLAB Lab 03/19/25 06:00 Ordered HIV Combo Stat Lab 03/18/25 22:23 Completed Hepatitis C Ab Qual. W/ RFX Stat Lab 03/18/25 22:23 Completed PT INR [Prothrombin Time INR] Stat Lab 03/18/25 22:23 Completed PTT [Activated Partial Thrombo Time] Stat Lab 03/18/25 22:23 Completed Medical Decision Narrative: Stu Badillo is a 55y is a 55-year-old male with a past medical history of hypertension on lisinopril, diabetes who presents to the emergency department for complaint of swelling to his face. Patient states that approximately 1 hour ago, he noticed swelling inside of his mouth and tongue as well as lips. He states that this is never happened before. He denies any new foods. He states that he took an allergy medication prior to arrival but does not know what it is. He reports that he is breathing okay. He does report that his voice appears muffled. Patient was quickly assessed and is felt that no acute airway interventions are indicated at this time given he is speaking in full sentences and maintaining his airway at this time. Will administer 0.3 mg of intramuscular epinephrine, 125 mg of IV Solu-Medrol, 50 mg of IV Benadryl. Will also administer 1 g of IV TXA over 10 minutes given this is likely angioedema from a bradykinin mediated source from his lisinopril and less likely to be an allergic reaction to something else given he has not had any new foods or medications recently or other new exposures. These medications were administered at 2017. Patient was maintained on continuous telemetry monitoring. Will also obtain basic set of labs, CBC, CMP, coagulation factors. Is felt that no CT imaging is indicated at this time. On reassessment, patient reported significant improvement in symptoms. Swelling appears to have gone down significantly to the tongue, sublingual area, posterior oropharynx and lips, however does not appear completely resolved. Patient's voice appears back to normal and he continues to speak in full sentences without respiratory distress. Will continue to monitor patient for any recurrence of symptoms for minimum of 3 hours. I did discuss with patient that he will need to discontinue taking the lisinopril as this is the likely source of his reaction today and he was in agreement that he is not going to take this medication any longer. I did encourage him to follow-up with his prescribing physician if he is discharged today to discuss further medication options. At this time, patient's care was handed off to the oncoming physician, Dr. Rodriguez for further management. Rodriguez: I assumed care of this patient and he was hemodynamically stable, well-appearing, his swelling is largely resolved. Airway patent, no stridor. He was placed in ED observation at 2300 hrs. for continued symptomatic monitoring to evaluate for the possibility of rebound reaction. He remained on the teletypesetter monitor and has been frequently reassessed. Unfortunately it does appear that the left lower lip is starting to swell slightly again. Because this is most likely a bradykinin mediated reaction I do not believe additional epinephrine is indicated. His airway is still patent, no swelling of the oropharynx, just very slight swelling of the left lower lip at this time. Instead I believe the patient would benefit from FFP to help temper bradykinin mediated reaction. He will also then have to be admitted. Patient is agreeable to this. He was consented for FFP transfusion. He understands he will have to be admitted for continued monitoring. I discussed this case with the hospitalist who would like the patient to remain in the ER until the FFP is started. I believe this is reasonable since he is an airway watch her at this time though his airway remains widely patent with no intraoral or posterior oropharyngeal swelling. Type and screen was sent, FFP was started. Patient is tolerating transfusion well at this time. He has had no additional swelling, airway patent with no intraoral or posterior oropharyngeal swelling. He is appropriate for admission at this time. I notified the hospitalist who graciously accepted this patient for admission. He was admitted in stable condition. Critical Care <Randy More MD - Last Filed: 03/19/25 00:51> Critical Care Time Critical Care Time: Yes Attestation: On 03/18/25, the high probability of a clinically significant, sudden or life threatening deterioration of the following system(s) required my full and direct attention, intervention and personal management. The time I documented below is in addition to time spent performing reported procedures but includes the following listed in this critical care notation. Total Time Total Critical Care Time: 35 <Zhou Rodriguez MD - Last Filed: 03/19/25 04:05> Total Time Total Critical Care Time: 55
[2025-03-18] MEDS: METHYLPREDNISOLONE SOD SUCC 125MG VIAL 125 MG IV (22:25)
[2025-03-18] MEDS: TRANEXAMIC ACID 1,000 MG/10 ML VIAL 1000 MG IVP (22:26)
[2025-03-18 22:29] VITALS: BP 155/81; PULSE 120; RESP 18; O2SAT 96
--- OUTSIDE RECORDS SUMMARY | 2025-03-18 22:31 | XMS_ITS | Encounter Summary ---
Author Organization [facility] Address [address] [place] [address] Care Team Providers Care Assembler Piano Name Role Phone Viktoria Steve Billy APRN Primary Care Provider [phone] Reason for Visit * Reason Comments Med Refill Encounter Details Date Type Department Care Team (Late st Contact Info) Description 01/18/2025 Refill [facility] [address] [place] [address] Lia Hernandez PA [address] [place] [address] Type 1 diabetes mellitus with [...] AM EDT [facility] [address] [place] [id number] Lia Hernandez PA [address] [place] [address] documented as of this encounter [...] documented as of this encounter Care Teams Assembler Piano Relationship Specialty Start Date End Date Steve Blum APRN [address] [place] [address] PCP - General 10/28/24 documented as of this encounter
--- OUTSIDE RECORDS SUMMARY | 2025-03-18 22:31 | XMS_ITS | Encounter Summary ---
Author Organization [facility] Address [address] [place] [address] Care Team Providers Care Corporate Strategy Intern Name Role Phone Salvador Epps MD Primary Care Provider [phone] Steve Blum APRN Primary Care Provider [phone] Reason for Visit * Reason Comments Med Refill Encounter Details Date Type Department Care Team (Late st Contact Info) Description 05/28/2023 Refill [facility] Endocrinology [address] [place] [address] Lia Hernandez PA [address] [place] [address] Type 1 diabetes mellitus with [...] Description 04/29/2025 9:00 AM EDT Office Visit [facility] [place] [facility] Endocrinology [address] [place] [address] Lia Hernandez PA [address] [facility] [address] [place] [address] documented as of this encounter Visit Diagnoses [...] documented as of this encounter Care Teams Corporate Strategy Intern Relationship Specialty Start Date End Date Salvador Epps MD [address] [place] [id number] PCP - General 11/26/20 10/27/24 Steve Blum APRN [address] [place] [id number] PCP - General 10/28/24 documented as of this encounter
--- OUTSIDE RECORDS SUMMARY | 2025-03-18 22:31 | XMS_ITS | Clinical Summary ---
Author Organization [facility] Address [address] [place] [address] Care Team Providers Care Road Engineer Name Role Phone Viktoria Steve Billy APRN Primary Care Provider [phone] Allergies Active Allergy Reactions Criticality Noted Date [...] presence unspecified, unspecified laterality, unspecified retinopathy severity ([facility]) Use to test blood glucose 5 times [...] Type Department Care Team Description 01/18/2025 Refill [facility] Endocrinology [address] [place] [address] Lia Hernandez PA Type 1 diabetes mellitus [...] Description 04/29/2025 9:00 AM EDT Office Visit [facility] Endocrinology [address] [place] [address] Lia Hernandez, PA [address] [place] [id number] Health Maintenance Due Date Last Done Comments [facility]-HIV Screening 1971 [facility]-Hepatitis C Screening 1971 [facility]-/Child/Adol SDOH Screenings 1971 Diabetes: Dental Exam 1981 [...] 01/20/2016 [facility]-Zoster Vaccines (1 of 2) 2021 [id number] Vaccine (3 - season) 2024 08/27/2021, 07/17/2021 [...] Hemoglobin A1C 6.7 <5.7% Non-Diabet ic % [email or web address] Kit Lot Number [id number] [facility] Kit Expiration Date 09/11 [employer] [facility] Blood Venous blood specimen / Unknown 10/28/2024 9:06 AM EDT Lia SERRATO POINT OF CARE TEST EN TER/EDIT ORDERABLES Final Result [facility] [address] [place] [address] from Last 3 Months or Most Recently Relevant to Health Maintenance Insurance Care Teams Road Engineer Relationship Specialty Start Date End Date Steve Blum APRN [address] [place] [address] PCP - General 10/28/24
[2025-03-18 22:32] LABS: Hematocrit 47.0 % (42.0-52.0); Hemoglobin 15.9 g/dL (14.1-18.0); Immature Granulocytes % 0.8 %; Mean Corpuscular HGB Conc 33.8 g/dL (31.8-35.4); Mean Corpuscular Hemoglobin 30.6 pg (27.0-31.2); Mean Corpuscular Volume 90.6 fl (80-94); Nucleated Red Blood Cells % 0 %; Platelet Count 245 K/mm3 (142-424); Red Blood Count 5.19 M/mm3 (4.60-6.20); Red Cell Distribution Width-SD 39.7 fL; White Blood Count 8.6 K/mm3 (4.8-10.8)
[2025-03-18 22:44] LABS: Albumin Level 4.6 g/dl (3.5-5.0); Chloride 103 mmol/L (98-107); Potassium 3.9 mmoL/L (3.5-5.1); Sodium 139 mmol/L (136-145)
[2025-03-18 22:46] LABS: Activated Partial Thrombo Time 23.4 seconds (22.8-30.6); INR 0.96 (0.9-1.1); Prothrombin Time 10.7 seconds (10.1-12.5)
[2025-03-18 22:47] LABS: Alanine Aminotransferase 38 U/L (12-78); Albumin/Globulin Ratio 1.4 (1.1-1.8); Alkaline Phosphatase 93 U/L (38-126); Anion Gap 9.9 mEq/L (5-15); Aspartate Amino Transferase 43 U/L (17-59); Bilirubin,Total 0.9 mg/dl (0.2-1.3); Blood Urea Nitrogen 10 mg/dl (9-20); Calcium 9.5 mg/dl (8.4-10.2); Carbon Dioxide 30 mmol/L (22.0-30.0); Creatinine Clearance Estimated 102 mL/min (50-200); Creatinine,Serum 0.90 mg/dl (0.66-1.25); Estimated Glomerular Filt Rate 88 ml/min (>60); GFR (African American) 106 ML/MIN (>60); Globulin 3.3 g/dL (1.3-3.2); Glucose 138 mg/dl (74-100); Total Protein,Serum 7.9 g/dl (6.3-8.2)
[2025-03-18 23:00] VITALS: BP 140/72; PULSE 99; RESP 17; O2SAT 95
[2025-03-18 23:30] VITALS: BP 134/71
[2025-03-18 23:37] LABS: Hepatitis C Ab Qual. W/ RFX NEGATIVE (Negative)
[2025-03-19] VITALS (16 sets, daily range): BP systolic 123–165; BP diastolic 67–92; PULSE 91–126; RESP 13–22; TEMP 36.6–37.1; O2SAT 90–97; BMI 28.5
--- NOTE | 2025-03-19 01:57 | PC.NURSE ---
Lab at bedside obtaining type and screen.
--- NOTE | 2025-03-19 04:31 | PC.NURSE ---
FFP infusion: 0- Product number: [id number] Start time: 03/19/25399 Stop Time: 03/19/25417 Volume infused: 297ml Vitals: 157/92,22,95%, 113, 98
--- NOTE | 2025-03-19 05:04 | PC.NURSE ---
pt to icu unit via wheelchair at 4753
--- NOTE | 2025-03-19 05:09 | P.HP_ITS ---
<Statement entered by Tom Shook MD - 03/19/25 12:23> Rounded on patient after nurse practitioner. Personally examined and interviewed patient. Agree with exam findings and care plan as documented. History of Present Illness *Admission Date: 03/19/25 *Reason for visit:: Allergic reaction *History of present illness: Mr. Badillo is a 55-year-old male presents to ER for evaluation of mouth swelling. Patient has a past medical history of hypertension, diabetes mellitus, hyperlipidemia, and GERD. He states at 2020 yesterday evening at this mouth started to itch and his lips and jaw started to swell. He states he also had some nausea. He states once he got to the hospital he was able to vomit and he felt better. He does report a history of taking lisinopril for his hypertension. He states he usually takes this medication in the morning. Sunny marmolejo states he has not had this type of reaction before. He denies any difficulty swallowing or tolerating his own secretions. He states he developed a headache and lightheadedness after all the meds he has been given. Patient denies fever/chills, cough, congestion, runny nose, dyspnea, chest pain, abdominal pain, diarrhea, constipation, dizziness, or syncope. [facility] Disclaimer: The information contained in this section may have been updated after the patient was seen, as this information can be updated by other users. Medical History (Updated 03/19/25 @ 05:16 by Josette Noyola APRN) History of gastroesophageal reflux (GERD) Diabetes mellitus type 1 History of cataract Hypertension Surgical History History of cholecystectomy History of tonsillectomy Family History Other Hypertension Stroke Social History (Updated 03/19/25 @ 04:55 by Sammie Liang RN) Smoking Status: Never smoker alcohol intake: never substance use type: denies use current occupational status: employed Travel in the last 8 weeks?: None household members: family housing: house marital status: education level: high school Have you lived/traveled outside US in past 30 days?: No Contact w/someone who lives/traveled outside US past 30 days?: No Exposure to someone with infectious disease in past 14 days?: No Do you have a fever (greater than 100.4 F or 38 C)?: No Have you tested positive for COVID-19?: No Exposed to someone with COVID-19 in past 14 days?: No Do you have a sore throat?: No Do you have a cough?: No Do you have any weakness?: No Do you have any diarrhea?: No Are you experiencing any unusual bleeding?: No Do you have any muscle aches/pain?: No Do you have any abdominal pain?: No Are you experiencing loss of taste or smell?: No Other Medical History Have you received the Flu Vaccine for this season: No Have you received the Pneumonia Vaccine: No Review of Systems Constitutional Constitutional: Denies chills, Denies fever(s) and Reports headache(s) ENT Ears, Nose, Mouth, and Throat: Denies dizziness, Reports headache(s) and Reports lip swelling *Cardiovascular Cardiovascular: Denies chest pain, Denies dyspnea, Reports lightheadedness and Denies syncope *Respiratory Respiratory: Denies cough and Denies dyspnea *Gastrointestinal Gastrointestinal: Denies abdominal pain, Denies constipation, Denies loose stools, Reports nausea and Reports vomiting *Genitourinary Genitourinary: Reports system reviewed and no additional complaints, except as documented *Musculoskeletal Musculoskeletal: Reports system reviewed and no additional complaints, except as documented *Neurologic Neurologic: Denies dizziness, Reports headache(s) and Denies syncope Allergic/Immunologic Allergic/Immunologic: Reports lip swelling Meds Home Medications and Allergies Home Medications ?Medication ?Instructions ?Recorded ?Confirmed ?Type cyclosporine 0.05 % eye drops in a 1 drp ophthalmic (e ye) Q12H 08/23/23 03/19/25 History dropperette insulin lispro 100 unit/mL 1 sliding scale dose SQ 03/0803/19/25 History subcutaneous solution (Humalog USEASDIRECTD U-100 Insulin) lisinopril 10 mg tablet 10 mg PO DAILY 08/23/2311/07 History atorvastatin 40 mg tablet 40 mg PO DAILY 11/20/2311/07 History omeprazole 40 mg capsule,delayed 40 mg PO DAILY #30 ca ps 04/07/24 03/19/25 Rx release cyclobenzaprine 5 mg tablet 5 mg PO BID PRN muscle spa sm #30 02/20/25 03/19/25 Rx tabs New Prescriptions to Start Prescriptions: Allergies Allergy/AdvReac Type Severity Reaction Status Date / Time lisinopril Allergy Anaphylaxis Verified 03/19/25 04:50 Exam Data for Last 24 hours Vital signs and Labs for Last 24 Hours: Temp Pulse Resp BP Pulse Ox O2 Del Method 98.4 F 101 H 19 141/78 H 94 L Room Air 03/19/25 04:33 03/19/25 04:33 03/19/25 04:33 03/19/25 04:33 03/19/25 04:33 03/19/25 05:00 Laboratory Results - last 24 hr 03/18/25 22:23: WBC 8.6, RBC 5.19, Hgb 15.9, Hct 47.0, MCV 90.6, MCH 30.6, MCHC 33.8, RDW 12.0, Plt Count 245, MPV 9.8, Neut % (Auto) 58.3, Lymph % (Auto) 31.4, [place] % (Auto) 7.3, Eos % (Auto) 1.6, Baso % (Auto) 0.6, Neut # (Auto) 5.0, Lymph # (Auto) 2.7, [place] # (Auto) 0.6, Eos # (Auto) 0.1, Baso # (Auto) 0.1, PT 10.7, INR 0.96, APTT 23.4, Sodium 139, Potassium 3.9, Chloride 103, Carbon Dioxide 30, Anion Gap 9.9, BUN 10, Creatinine 0.90, Estimated Creat Clear 102, Estimated GFR 88, Est GFR ( Amer) 106, Glucose 138 H, Calcium 9.5, Total Bilirubin 0.9, AST 43, ALT 38, Alkaline Phosphatase 93, Total Protein 7.9, Albumin 4.6, Globulin 3.3 H, Albumin/Globulin Ratio 1.4, HCV Ab GIULIANA w/Rflx PCR Qn Negative, HIV Ag/Ab Combo Qual Negative 03/18/25 22:39: Blood Type Confirm O Positive 03/19/25 02:19: Blood Type O Positive I & O for Last 24 hours: Intake & Output 03/16/25 03/17/25 03/18/25 03/19/25 23:59 23:59 23:59 23:59 Intake Total 297 / 297 Balance 297 / 297 Weight 77.111 kg 77.564 kg *Routine HEENT Exam Head: Present normocephalic and atraumatic Eye: Present EOMI and PERRL ENT: Present mucous membranes moist and oropharynx clear Comments: edema noted to lips *Routine Neck Exam Neck: Present supple and full ROM *Routine Respiratory Exam Respiratory: Present CTA bilaterally, normal respiratory effort, able to speak in complete sentences and symmetric chest movement; Absent accessory muscle use, rales, respiratory distress, rhonchi, wheezes or crackles *Routine Cardiovascular Exam Cardiovascular: Present RRR, Normal S1, Normal S2 and tachycardia *Routine Abdominal Exam Abdominal: Present soft and normoactive bowel sounds; Absent tenderness *Routine Rectal Exam Rectal:: deferred *Routine Genitalia Exam Genitalia:: deferred *Routine Extremities Exam Extremities: Present full ROM, pulses intact and normal capillary refill; Absent edema *Routine Skin Exam Skin: Present intact, dry and warm; Absent erythema *Routine Neurological Exam Neurological: Present alert, oriented X3 and CN II-XII intact Assessment and Plan *Assessment and plan (1) Angioedema: Status: Acute Category: Medical Code(s): T78.3XXA - Angioneurotic edema, initial encounter Plan: Patient received epinephrine, Solu-Medrol, triamcinolone acid, Benadryl, and FFP in the ER Benadryl 25 mg IV every 4 hours Pepcid 20 mg IV twice daily Solu-Medrol 40 mg IV every 8 hours Discontinue lisinopril (2) Diabetes: Status: Acute Category: Medical Code(s): E11.9 - Type 2 diabetes mellitus without complications Plan: Glucose checks before meals and at bedtime Sliding scale insulin Monitor BMP daily (3) Hypertension: Status: Acute Category: Medical Code(s): I10 - Essential (primary) hypertension Plan: Monitor vitals every 2 hours (4) GERD (gastroesophageal reflux disease): Status: Acute Category: Medical Code(s): K21.9 - Gastro-esophageal reflux disease without esophagitis Plan: Continue Pepcid Plan Spoke with Zhou, ER provider, decision to admit based on return of swelling after treatment with Benadryl, Solu-Medrol, epinephrine, and tranexamic acid, need for FFP infusion, and close monitoring.
[2025-03-19] MEDS: METHYLPREDNISOLONE SOD SUCC 40MG VIAL 40 MG IV ×2 (05:12→13:07)
[2025-03-19] MEDS: 0.9 % SODIUM CHLORIDE 1000ML 1,000 ML 100 ML IV (05:12)
[2025-03-19 06:00] LABS: POC Glucose,Bedside 183 gm/dL (70-110)
[2025-03-19 06:06] LABS: Hematocrit 45.6 % (42.0-52.0); Hemoglobin 14.7 g/dL (14.1-18.0); Immature Granulocytes % 0.8 %; Mean Corpuscular HGB Conc 32.2 g/dL (31.8-35.4); Mean Corpuscular Hemoglobin 29.4 pg (27.0-31.2); Mean Corpuscular Volume 91.2 fl (80-94); Nucleated Red Blood Cells % 0 %; Platelet Count 240 K/mm3 (142-424); Red Blood Count 5.00 M/mm3 (4.60-6.20); Red Cell Distribution Width-SD 40.3 fL; White Blood Count 10.6 K/mm3 (4.8-10.8)
[2025-03-19 06:15] LABS: Anion Gap 15.2 mEq/L (5-15); Blood Urea Nitrogen 12 mg/dl (9-20); Calcium 9.7 mg/dl (8.4-10.2); Carbon Dioxide 26 mmol/L (22.0-30.0); Chloride 102 mmol/L (98-107); Creatinine Clearance Estimated 116 mL/min (50-200); Creatinine,Serum 0.80 mg/dl (0.66-1.25); Estimated Glomerular Filt Rate 101 ml/min (>60); GFR (African American) 122 ML/MIN (>60); Glucose 188 mg/dl (74-100); Potassium 4.2 mmoL/L (3.5-5.1); Sodium 139 mmol/L (136-145)
[2025-03-19] MEDS: FAMOTIDINE 20MG/2ML VIAL 20 MG IV (08:17)
[2025-03-19 11:48] LABS: POC Glucose,Bedside 196 gm/dL (70-110)
--- NOTE | 2025-03-19 12:15 | EXP.DC.SUM ---
General Admission date:: 03/19/25 Discharge date: 03/19/25 HPI HPI HPI: Mr. Badillo is a 55-year-old male presents to ER for evaluation of mouth swelling. Patient has a past medical history of hypertension, diabetes mellitus, hyperlipidemia, and GERD. He states at 2020 yesterday evening at this mouth started to itch and his lips and jaw started to swell. He states he also had some nausea. He states once he got to the hospital he was able to vomit and he felt better. He does report a history of taking lisinopril for his hypertension. He states he usually takes this medication in the morning. Patient states he has not had this type of reaction before. He denies any difficulty swallowing or tolerating his own secretions. He states he developed a headache and lightheadedness after all the meds he has been given. Patient denies fever/chills, cough, congestion, runny nose, dyspnea, chest pain, abdominal pain, diarrhea, constipation, dizziness, or syncope. Hospital Course Hospital Course Hospital Course: Presented with swelling of the mouth. Has been on lisinopril for approximately 4 years. Symptoms began after taking his medication. Mainly swelling of the mouth. Denies respiratory distress or hypotension. No cough or shortness of breath. Swelling in the mouth showed improvement after presentation to the ER and treatment with epinephrine, Benadryl, and methylprednisolone. Given his clinical improvement. Was observed during admission. Tolerating p.o. intake. Swelling more or less resolved. Treated with 1 course of FFP. Will hold his lisinopril at this time. Continue cetirizine 10 mg daily for long-acting antihistamine benefit. Will discontinue lisinopril. Given symptom resolution, stable discharge home. Will continue home Lipitor for hyperlipidemia; continue home insulin regimen for diabetes, continue omeprazole 40 mg daily for GERD. Follow-up with PCP in 1 week to monitor complete resolution of symptoms. Exam Data for Last 24 hours Vital signs and Labs for Last 24 Hours: Temp Pulse Resp BP Pulse Ox O2 Del Method 98.6 F 112 H 22 142/83 H 90 L Room Air 03/19/25 12:03 03/19/25 12:03 03/19/25 08:00 03/19/25 12:03 03/19/25 12:03 03/19/25 11:00 Laboratory Results - last 24 hr 03/18/25 22:23: WBC 8.6, RBC 5.19, Hgb 15.9, Hct 47.0, MCV 90.6, MCH 30.6, MCHC 33.8, RDW 12.0, Plt Count 245, MPV 9.8, Neut % (Auto) 58.3, Lymph % (Auto) 31.4, [place] % (Auto) 7.3, Eos % (Auto) 1.6, Baso % (Auto) 0.6, Neut # (Auto) 5.0, Lymph # (Auto) 2.7, [place] # (Auto) 0.6, Eos # (Auto) 0.1, Baso # (Auto) 0.1, PT 10.7, INR 0.96, APTT 23.4, Sodium 139, Potassium 3.9, Chloride 103, Carbon Dioxide 30, Anion Gap 9.9, BUN 10, Creatinine 0.90, Estimated Creat Clear 102, Estimated GFR 88, Est GFR ( Amer) 106, Glucose 138 H, Calcium 9.5, Total Bilirubin 0.9, AST 43, ALT 38, Alkaline Phosphatase 93, Total Protein 7.9, Albumin 4.6, Globulin 3.3 H, Albumin/Globulin Ratio 1.4, HCV Ab GIULIANA w/Rflx PCR Qn Negative, HIV Ag/Ab Combo Qual Negative 03/18/25 22:39: Blood Type Confirm O Positive 03/19/25 02:19: Blood Type O Positive 03/19/25 04:44: WBC 10.6, RBC 5.00, Hgb 14.7, Hct 45.6, MCV 91.2, MCH 29.4, MCHC 32.2, RDW 12.1, Plt Count 240, MPV 10.2, Neut % (Auto) 91.7 H, Lymph % (Auto) 6.8 L, [place] % (Auto) 0.6 L, Eos % (Auto) 0.0 L, Baso % (Auto) 0.1, Neut # (Auto) 9.8 H, Lymph # (Auto) 0.7, [place] # (Auto) 0.1, Eos # (Auto) 0.0, Baso # (Auto) 0.0, Sodium 139, Potassium 4.2, Chloride 102, Carbon Dioxide 26, Anion Gap 15.2 H, BUN 12, Creatinine 0.80, Estimated Creat Clear 116, Estimated GFR 101, Est GFR ( Amer) 122, Glucose 188 H D, Calcium 9.7 03/19/25 05:53: POC Glucose 183 H 03/19/25 11:38: POC Glucose 196 H I & O for Last 24 hours: Intake & Output 03/16/25 03/17/25 03/18/25 03/19/25 23:59 23:59 23:59 23:59 Intake Total 1184.667 / 1184.667 Output Total 0 / 0 Balance 1184.667 / 1184.667 Weight 77.111 kg 77.564 kg Constitutional Constitutional: no acute distress, average body habitus and cooperative *Routine HEENT Exam Head: Present normocephalic Eye: Present EOMI and PERRL ENT: Present mucous membranes moist Comments: no significant swelling of mouth, lips *Routine Neck Exam Neck: Present supple; Absent lymphadenopathy *Routine Respiratory Exam Respiratory: Present CTA bilaterally; Absent rhonchi, wheezes or crackles *Routine Cardiovascular Exam Cardiovascular: Present RRR *Routine Abdominal Exam Abdominal: Present soft and normoactive bowel sounds; Absent tenderness *Routine Rectal Exam Patient deferred: visual exam *Routine Exam Patient deferred: penile exam *Routine Extremities Exam Extremities: Absent cyanosis, clubbing or edema *Routine Skin Exam Skin: Present intact and warm; Absent rash *Routine Neurological Exam Neurological: Present alert, oriented X3 and moving all extremities; Absent altered mental status Results Data Completed and Pending Labs on day of discharge: Labs from last 24 hours 03/19/25 03/19/25 03/19/25 11:38 05:53 04:44 WBC 10.6 RBC 5.00 Hgb 14.7 Hct 45.6 MCV 91.2 MCH 29.4 MCHC 32.2 RDW 12.1 Plt Count 240 MPV 10.2 Neut % (Auto) 91.7 H Lymph % (Auto) 6.8 L [place] % (Auto) 0.6 L Eos % (Auto) 0.0 L Baso % (Auto) 0.1 Neut # (Auto) 9.8 H Lymph # (Auto) 0.7 [place] # (Auto) 0.1 Eos # (Auto) 0.0 Baso # (Auto) 0.0 PT INR APTT Sodium 139 Potassium 4.2 Chloride 102 Carbon Dioxide 26 Anion Gap 15.2 H BUN 12 Creatinine 0.80 Estimated Creat Clear 116 Estimated GFR 101 Est GFR ( Amer) 122 Glucose 188 H D POC Glucose 196 H 183 H Calcium 9.7 Total Bilirubin AST ALT Alkaline Phosphatase Total Protein Albumin Globulin Albumin/Globulin Ratio HCV Ab GIULIANA w/Rflx PCR Qn HIV Ag/Ab Combo Qual Blood Type Blood Type Confirm 03/19/25 03/18/25 03/18/25 02:19 22:39 22:23 WBC 8.6 RBC 5.19 Hgb 15.9 Hct 47.0 MCV 90.6 MCH 30.6 MCHC 33.8 RDW 12.0 Plt Count 245 MPV 9.8 Neut % (Auto) 58.3 Lymph % (Auto) 31.4 [place] % (Auto) 7.3 Eos % (Auto) 1.6 Baso % (Auto) 0.6 Neut # (Auto) 5.0 Lymph # (Auto) 2.7 [place] # (Auto) 0.6 Eos # (Auto) 0.1 Baso # (Auto) 0.1 PT 10.7 INR 0.96 APTT 23.4 Sodium 139 Potassium 3.9 Chloride 103 Carbon Dioxide 30 Anion Gap 9.9 BUN 10 Creatinine 0.90 Estimated Creat Clear 102 Estimated GFR 88 Est GFR ( Amer) 106 Glucose 138 H POC Glucose Calcium 9.5 Total Bilirubin 0.9 AST 43 ALT 38 Alkaline Phosphatase 93 Total Protein 7.9 Albumin 4.6 Globulin 3.3 H Albumin/Globulin Ratio 1.4 HCV Ab GIULIANA w/Rflx PCR Qn Negative HIV Ag/Ab Combo Qual Negative Blood Type O Positive Blood Type Confirm O Positive DS: Diagnosis Discharge Diagnosis (1) Angioedema: Status: Acute Code(s): T78.3XXA - Angioneurotic edema, initial encounter (2) Diabetes: Status: Acute Code(s): E11.9 - Type 2 diabetes mellitus without complications (3) Hypertension: Status: Acute Code(s): I10 - Essential (primary) hypertension (4) GERD (gastroesophageal reflux disease): Status: Acute Code(s): K21.9 - Gastro-esophageal reflux disease without esophagitis Meds Home Medications and Allergies Home Medications ?Medication ?Instructions ?Recorded ?Confirmed ?Type insulin lispro 100 unit/mL 1 sliding scale dose SQ 08/23/23 03/19/25 History subcutaneous solution (Humalog USEASDIRECTD U-100 Insulin) atorvastatin 40 mg tablet 40 mg PO HS 11/20/23 03/19/25 History omeprazole 40 mg capsule,delayed 40 mg PO DAILY #30 caps 04/07/24 03/19/25 Rx release cetirizine 10 mg tablet (Zyrtec) 10 mg PO DAILY #30 tabs 03/19/25 Rx cyclobenzaprine 5 mg tablet 5 mg PO BIDP PRN muscle spasm 03/19/25 03/19/25 History New Prescriptions to Start Prescriptions: cetirizine [Zyrtec] Tom Shook Allergies Allergy/AdvReac Type Severity Reaction Status Date / Time lisinopril Allergy Anaphylaxis Verified 03/19/25 09:55 Discharge Plan Disposition Patient Disposition: Home, Self-Care Condition: Good Follow up Plan Follow up with: Alyssa Juarez APRN [Primary Care Provider, [facility]] - 03/26/25 1:00 pm Prescriptions/Medication Reconciliation: New cetirizine [Zyrtec] 10 mg tablet 10 mg PO DAILY Qty: 30 0RF Continued insulin lispro [Humalog U-100 Insulin] 100 unit/mL solution 1 sliding scale dose SQ USEASDIRECTD atorvastatin 40 mg tablet 40 mg PO HS Patient Comments: TAKE 1 TABLET BY MOUTH EVERY DAY AT BEDTIME omeprazole 40 mg capsule,delayed release(DR/EC) 40 mg PO DAILY Qty: 30 12RF Rx Instructions: Please take 1 tablet p.o. daily cyclobenzaprine 5 mg tablet 5 mg PO BIDP PRN (Reason: muscle spasm) Problem Reconciliation Problems Reviewed?: Yes Patient Discharge Instructions Patient Instructions: Angioedema, DI for General Allergic Reactions, DI for Adverse Drug Reaction -- Allergic Print Language: Burkinan Providers Primary Care Provider: Alyssa Juarez Admit Provider: Tom Shook Attending Provider: Tom Shook
--- NOTE | 2025-03-20 11:02 | SW/DCPLANNER ---
Spoke with patient on the phone. Patient stated that he is doing good. Patient stated that he is aware of his upcoming appointments. Patient stated that he was able to get his new medicine picked [facility] from [facility]. Patient stated that his care here at the hospital was exceptional. Patient stated that he has no concerns or questions at this time. Flora Rivera
== END 2025-03-19 13:17 | disposition home or self-care (01) ==
LOC: ER 03-19 03:04 → ICU 03-19 04:02
PROVIDERS: Nurse Practitioner Family; Admitting Provider Internal Medicine Adolescent Medicine; Emergency Provider Student in an Organized Health Care Education/Training Program; PCP Family Medicine; Visit Provider Internal Medicine Adolescent Medicine
DX: T78.3XXA Angioneurotic edema, initial encounter (principal); I10 Essential (primary) hypertension; E11.9 Type 2 diabetes mellitus without complications; E78.5 Hyperlipidemia, unspecified; K21.9 Gastro-esophageal reflux disease without esophagitis; Z88.8 Allergy status to other drugs, medicaments and biological substances; Z79.4 Long term (current) use of insulin; Z79.899 Other long term (current) drug therapy
CPT/HCPCS: 36415; 36430; 80048; 80053; 82962; 85025; 85610; 85730; 86803; 86900; 86901; 87389; 96361; 96372; 96374; 96375; 96376; 99285; G0378; J0169; J1200; J1650; J2919; J7030; P9017